=== PATIENT | female | born 1975 | race Caucasian/White ===

== ENCOUNTER 2022-06-04 13:16 | Emergency (ER) | payer OTHER ==
[2022-06-04 14:14] LABS: HEMOGLOBIN 12.8 gm/dl (12.3-15.3); RED BLOOD COUNT 3.92 M/UL (4.00-5.10); WHITE BLOOD COUNT 6.4 K/UL (4.5-11.0)
[2022-06-04 14:41] LABS: BUN/CREATININE RATIO 21 (0-10)
[2022-06-04] MEDS ORDERED: CEPHALEXIN500 MG PO (15:35)
== END 2022-06-04 16:00 | disposition home or self-care (01) ==
LOC: ER1 13:16
PROVIDERS: Emergency Medicine
DX: N39.0 Urinary tract infection, site not specified (principal); F17.200 Nicotine dependence, unspecified, uncomplicated
CPT/HCPCS: 71045; 80053; 81001; 82550; 82553; 83690; 84484; 84703; 85025; 85379; 93005; 96374; 99284; J0696